=== PATIENT | female | born 1980 | race Caucasian/White ===

== ENCOUNTER → 2017-03-25 12:51 | Outpatient (CLI) | payer OTHER, SELFPAY ==
--- NOTE | 2017-03-25 12:56 | MM_ITS ---
MM Dig mamm BI DX w/CAD, US breast RT complete, US breast LT complete COMPARISON: None INDICATION: Left breast pain ORDERING PHYSICIAN: Yenni Willson PATIENT AGE: 36 years TECHNIQUE: Standard images performed with bilateral spot compression views and bilateral breast ultrasound FINDINGS: There is average fibroglandular tissue. No malignant appearing mass or malignant appearing microcalcification is evident. An asymmetric density is noted in the outer aspect of the right breast. This may be likely related to overlapping fibroglandular tissue anomalies partially compressing out on the focal spot compression view and not identified in the orthogonal plane. There is however small cluster of cysts in this region which could also contribute to this finding. On the left there is some increased density in the retroareolar region and in the medial aspect of the left breast which is also felt to be related to fibroglandular tissue. No malignant appearing mass or malignant appearing microcalcification is evident. Right breast ultrasound: Small cluster of cysts at the 9:00 region measuring 9 x 4 mm. No other significant anomalies. Left breast ultrasound: Unremarkable. IMPRESSION: No convincing evidence of malignancy. Bilateral asymmetric densities and complex cyst in the right breast. Probably benign. Recommend 6 month follow-up BI-RADS Category: 3 Benign Finding Short Term Follow-up RECOMMENDED FOLLOW-UP: 6M - 6 MONTH FOLLOW-UP Bilateral mammogram and right breast ultrasound in 6 months (A letter has been sent to the patient regarding results of the study.)
== END ==
PROVIDERS: PCP Physician Assistant; Visit Provider Physician Assistant
DX: N64.4 Mastodynia (principal)
CPT/HCPCS: 19083; 76641; 77066

== ENCOUNTER → 2017-05-07 09:43 | Outpatient (CLI) | payer OTHER, SELFPAY ==
[2017-05-07 10:25] VITALS: BP 119/76; BP 121/85; PULSE 77; PULSE 84; RESP 18; O2SAT 96; O2SAT 98
== END ==
PROVIDERS: PCP Physician Assistant; Visit Provider Internal Medicine
DX: J45.20 Mild intermittent asthma, uncomplicated (principal); J30.9 Allergic rhinitis, unspecified
CPT/HCPCS: 94060; 94618; 94726; 94729

== ENCOUNTER → 2017-06-01 12:08 | Outpatient (POV) | payer OTHER, SELFPAY | PROVIDERS: Visit Provider Internal Medicine | DX: Z00.00 Encounter for general adult medical examination without abnormal findings (principal) ==

== ENCOUNTER → 2017-09-13 13:39 | Outpatient (CLI) | payer OTHER, SELFPAY ==
--- NOTE | 2017-09-13 13:43 | US_ITS ---
MM Dig mamm BI DX w/CAD Right breast ultrasound complete with axilla Left breast ultrasound complete with axilla INDICATION: 6 month follow-up ORDERING PHYSICIAN: Yenni Willson PATIENT AGE: 36 years COMPARISON: 03/25/2017 TECHNIQUE: Standard images performed of both breasts along with problem solving views of both breasts FINDINGS: There is average fibroglandular tissue. Right breast: Scattered areas of asymmetry are once again noted not significant changed. These areas do appear to compress out as fibroglandular tissue. Benign-appearing nodular opacity is present in the inferior and deep aspect of the right breast not significant changed.. Left breast: Scattered areas of asymmetry not significant changed. The asymmetric density in the medial aspect of the left breast does appear to compress out as fibroglandular tissue. No discrete mass apparent Right breast ultrasound: Small cyst at 8:00 near the nipple at 7 x 3 mm. 6 x 2 mm complex cyst at 9:00. Left breast ultrasound: No cystic or solid lesions evident. IMPRESSION: Overall no significant change. Benign findings with no evidence of malignancy. Scattered areas of asymmetry consistent with fibroglandular tissue with cysts on the right BI-RADS Category: 3 Benign Finding Short Term Follow-up RECOMMENDED FOLLOW-UP: 6M - 6 MONTH FOLLOW-UP Suggest continued 6 month follow-up to confirm one-year stability of the asymmetric densities (A letter has been sent to the patient regarding results of the study.)
== END ==
PROVIDERS: PCP Physician Assistant; Visit Provider Physician Assistant
DX: R92.8 Other abnormal and inconclusive findings on diagnostic imaging of breast (principal)
CPT/HCPCS: 76641; 77066

== ENCOUNTER → 2017-11-23 09:42 | Outpatient (CLI) | payer OTHER, SELFPAY ==
--- NOTE | 2017-11-23 09:45 | CA_ITS ---
PROCEDURE: 2-D M-mode and color Doppler study INDICATIONS FOR THE TEST: Chest pain COPD+ Heart Murmur Tobacco Smoking Palpitations Fatigue Syncope Edema+ Hypertension+Diabetes Mellitus Rheumatic Fever SOB [place] Obesity+Hyperlipidemia+ Family History HD Additional History PATIENT INFORMATION HEIGHT:60 WEIGHT:224 GENDER: Female B/P:129/75 2-D/M-MODE INTERPRETATION: 2-D MEASUREMENTS OBSERVED VALUES IN CMS Right Ventricular Dimension (RVDd) 1.6 Interventricular Septum (Thickness)(IVsd) 1.1 Left Ventricular Internal Dimensions(LVIDd) 5.1 Left Ventricular Posterior Wall (Thickness)(LVPWd) 0.8 Aortic Root 2.6 Aortic Cusp Separation 2.0 Left Atrial Dimensions (LAD) 3.3 2D 1. Left atrium is mildly enlarged, left ventricle is normal size, mild concentric left ventricular hypertrophy, visually estimated ejection fraction 55% with no obvious regional wall motion abnormality. 2. The right atrium ventricular normal size and contractility. 3. The aortic valve is minimally thickened and fibrosed. 4. The mitral and tricuspid valve leaflets are minimally thickened. 5. The pulmonic valve is poorly visualized. 6. No significant pericardial effusion noted. DOPPLER INTERROGATION: Doppler interrogation of the aortic, mitral and tricuspid valvular presence of mild mitral and tricuspid regurgitation, tricuspid regurgitant jet velocity insufficient for calculation of the right ventricle is pressure, diastolic parameters are inconclusive. CONCLUSION: 1. Mildly enlarged left atrium, normal left ventricular size, mild concentric left ventricular hypertrophy, visually estimated ejection fraction 55% with no obvious regional wall motion abnormality, diastolic parameters are inconclusive. 2. Mild mitral and tricuspid regurgitation 3. No significant pericardial effusion noted.
--- NOTE | 2017-11-23 09:45 | XR_ITS ---
XR chest 2V HISTORY: History of smoking, edema ITS.REASON: edema, CHF ORDERING PHYSICIAN: Tommy Dasilva MD PATIENT AGE: 37 years COMPARISON: 02/23/2017 FINDINGS: The cardiomediastinal silhouette and pulmonary vascularity are within normal limits. The lungs are clear without infiltrates, suspicious nodules, or pleural effusions. No acute bony abnormalities. IMPRESSION: Negative chest, no acute finding
[2017-11-23 11:26] LABS: Basophils # 0.1 K/mm3 (0-0.2); Basophils % 0.7 % (0.1-2.0); Eosinophils # 0.3 K/mm3 (0.0-0.4); Eosinophils % 3.2 % (0.1-12.0); Hematocrit 36.5 % (37.0-47.0); Hemoglobin 11.8 g/dL (12.2-16.2); Lymphocytes % 24.6 K/mm3 (10-50); Mean Corpuscular HGB Conc 32.4 g/dL (31.8-35.4); Mean Corpuscular Hemoglobin 28.7 pg (27.0-31.2); Mean Corpuscular Volume 88.5 fl (81-99); Monocytes # 0.5 K/mm3 (0.1-1.0); Monocytes % 5.6 % (1.7-9.3); Neutrophils # 5.2 K/mm3 (1.8-7.8); Neutrophils % 65.8 % (37.0-80.0); Platelet Count 277 K/mm3 (142-424); Red Blood Count 4.12 M/mm3 (4.20-5.40)
[2017-11-23 11:56] LABS: Alanine Aminotransferase 30 U/L (12-78); Albumin Level 3.4 gm/dL (3.4-5.0); Alkaline Phosphatase 79 U/L (46-116); Anion Gap 9.6 mEq/L (5-15); Aspartate Amino Transferase 10 U/L (15-37); Bilirubin,Direct 0.1 mg/dL (0.0-0.2); Bilirubin,Indirect 0.1 mg/dL (0.0-0.9); Bilirubin,Total 0.2 mg/dL (0.2-1.0); Blood Urea Nitrogen 13 mg/dL (7-18); Calcium 8.5 mg/dL (8.5-10.1); Carbon Dioxide 34 mmol/L (21.0-32.0); Chloride 104 mmol/L (98-107); Creatinine,Serum 1.02 mg/dL (0.55-1.02); Estimated Glomerular Filt Rate 60 ml/min (>60); Free T4 (Free Thyroxine) 0.88 ng/dl (0.76-1.46); Free Thyroxine Index 3.2 ug/dL (5.93-13.13); GFR (African American) 73 ML/MIN (>60); Glucose 98 mg/dL (74-106); Potassium 3.6 mmoL/L (3.5-5.1); Sodium 144 mmol/L (136-145); Thyroid Stimulating Hormone 7.81 uIU/ml (0.358-3.740); Total Protein,Serum 6.9 gm/dL (6.4-8.2); Triiodothryronine (T3) Uptake 35 % (31-39)
[2017-11-24 12:46] LABS: Triiodothyronine (T3) Free 3.7 pg/mL (2.0-4.4)
== END ==
PROVIDERS: Urology; PCP Physician Assistant; Visit Provider Internal Medicine
DX: I10 Essential (primary) hypertension (principal); R60.9 Edema, unspecified
CPT/HCPCS: 36415; 71046; 80048; 80076; 83880; 84436; 84439; 84443; 84479; 84481; 85025; 93306

== ENCOUNTER → 2018-06-29 14:30 | Outpatient (CLI) | payer OTHER, SELFPAY ==
--- NOTE | 2018-06-29 14:42 | XR_ITS ---
XR humerus RT CLINICAL INDICATION: ITS.REASON: RT ELBOW PAIN,RT ARM PAIN ORDERING PHYSICIAN: Yenni Willson PATIENT AGE: 37 years Comparison: None FINDINGS: No bony or joint abnormality IMPRESSION: Negative right humerus
--- NOTE | 2018-06-29 14:43 | XR_ITS ---
XR elbow RT min 3V HISTORY: ITS.REASON: RT ELBOW PAIN,RT ARM PAIN ORDERING PHYSICIAN: Yenni Willson PATIENT AGE: 37 years COMPARISON: None FINDINGS: The AP view there is a faint curvilinear lucency overlying the radial head. This could be due to an area of prominent trabeculation or overlying soft tissue mock line. One cannot exclude the possibility of a radial head fracture. Has there been recent injury? No displaced fat pad evident. No other significant anomalies. IMPRESSION: Possible radial head fracture versus overlying artifact. Suggest follow-up exam in 7-[address]
== END ==
PROVIDERS: PCP Physician Assistant; Visit Provider Physician Assistant
DX: M25.521 Pain in right elbow (principal); M79.601 Pain in right arm
CPT/HCPCS: 73060; 73080

== ENCOUNTER → 2018-08-12 09:22 | Outpatient (CLI) | payer OTHER, SELFPAY | PROVIDERS: PCP Physician Assistant; Visit Provider Nurse Practitioner Family | DX: I11.9 Hypertensive heart disease without heart failure (principal); R60.9 Edema, unspecified; R63.5 Abnormal weight gain | CPT/HCPCS: 93017 ==

== ENCOUNTER → 2020-07-18 09:19 | Outpatient (CLI) | payer MEDICAID, SELFPAY ==
--- NOTE | 2020-07-18 09:23 | MM_ITS ---
PROCEDURE INFORMATION: Exam: MG Screening 3D Mammography Exam date and time: 07/18/2020 9:23 AM Age: 39 years old Clinical indication: Encounter for screening mammogram for malignant neoplasm of breast TECHNIQUE: Imaging protocol: Screening tomosynthesis and 2D mammography including computer-aided detection (CAD) when performed. COMPARISON: 1. MG DXBI MM Dig mamm BI DX w/CAD 09/13/2017 1:53 PM 2. MG DXBI MM Dig mamm BI DX w/CAD 03/25/2017 1:15 PM FINDINGS: MAMMOGRAPHY: Breast composition: The breast tissue is composed of scattered areas of fibroglandular density. Mass: None. Architectural distortion: None. Calcifications: No suspicious calcifications. Asymmetric density: None. Skin thickening: None. Axillary adenopathy: None. IMPRESSION: No mammographic evidence of malignancy. Annual screening is recommended unless otherwise clinically indicated. ASSESSMENT: BI-RADS Category 1: Negative
== END ==
PROVIDERS: PCP Nurse Practitioner Family; Visit Provider Nurse Practitioner Family
DX: Z12.31 Encounter for screening mammogram for malignant neoplasm of breast (principal)
CPT/HCPCS: 77063; 77067

== ENCOUNTER → 2021-07-23 10:14 | Outpatient (CLI) | payer MEDICAID, SELFPAY ==
--- NOTE | 2021-07-23 10:17 | MM_ITS ---
PROCEDURE INFORMATION: Exam: MG Bilateral Screening 3D Mammography Exam date and time: 07/23/2021 10:18 AM Age: 40 years old Clinical indication: Screening examination TECHNIQUE: Imaging protocol: Bilateral Screening tomosynthesis and 2D mammography including computer-aided detection (CAD) when performed. COMPARISON: 1. MG MM DIG SCREENING MAMM BI W/CAD 07/18/2020 10:06 AM 2. MG DXBI MM Dig mamm BI DX w/CAD 09/13/2017 1:53 PM 3. MG DXBI MM Dig mamm BI DX w/CAD 03/25/2017 1:15 PM FINDINGS: MAMMOGRAPHY: Breast composition: There are scattered areas of fibroglandular density. Mass: No suspicious masses. Architectural distortion: No suspicious distortion. Calcifications: No suspicious calcifications. Asymmetric density: None. Skin thickening: None. Axillary adenopathy: None. IMPRESSION: No mammographic evidence of malignancy. Annual screening is recommended unless otherwise clinically indicated. ASSESSMENT: BI-RADS Category 1: Negative
== END ==
PROVIDERS: PCP Nurse Practitioner Family; Visit Provider Nurse Practitioner Family
DX: Z12.31 Encounter for screening mammogram for malignant neoplasm of breast (principal)
CPT/HCPCS: 77063; 77067

== ENCOUNTER 2024-04-30 20:29 | Emergency (ER) | payer MEDICAID, SELFPAY ==
[2024-04-30 20:32] VITALS: BP 119/56; PULSE 84; RESP 18; TEMP 36.5; O2SAT 95; BMI 36.9
--- NOTE | 2024-04-30 20:48 | PC.NURSE ---
Spoke with for a transfer. ED to ED transfer, awaiting a call back at this time.
--- NOTE | 2024-04-30 20:51 | HMH.EDGENADL ---
Discharge Plan Disposition Patient Disposition: Xfer Short-Term Hosp Chief Complaint: Wound/Laceration Prescriptions Prescriptions: No Action omeprazole 20 mg capsule,delayed release(DR/EC) 20 mg PO DAILY fluticasone propionate 50 mcg/actuation spray,suspension 1 spray INTRANASAL DAILY cetirizine [Zyrtec] 10 mg tablet 10 mg PO DAILY PRN Ventolin HFA 90 mcg/actuation HFA aerosol inhaler 2 puff INHALATION Q4-6H PRN montelukast [Singulair] 10 mg tablet 10 mg PO QPM meloxicam 7.5 mg tablet 7.5 mg PO DAILY hydroxyzine pamoate [Vistaril] 50 mg capsule 50 mg PO BID levothyroxine [Synthroid] 125 mcg tablet 125 mcg PO DAILY Dulera 200-5 mcg/actuation HFA aerosol inhaler 2 puff INHALATION BID bisoprolol fumarate 5 mg tablet 5 mg PO QDAY Qty: 30 5RF paroxetine HCl 30 mg tablet 30 mg PO DAILY rosuvastatin [Crestor] 20 mg tablet 20 mg PO DAILY Qty: 90 3RF lisinopril 20 mg tablet 20 mg PO DAILY Qty: 30 5RF spironolactone 25 mg tablet 25 mg PO DAILY Qty: 90 3RF torsemide 100 mg tablet 50 mg PO DAILY Qty: 90 3RF Referrals Follow up/Referrals: Linda Palma [Primary Care Provider] - See instructions Clinical Impressions Clinical Impression: Injury of palmar artery of right hand Instructions Patient Instructions: DI for Laceration Repair Print Language Print Language: Yakut Discharge ED Provider: Anatoly Holm General Adult HPI General Chief complaint: Wound/Laceration Stated complaint: AO 04/30/241999 laceration right hand Time Seen by Provider: 04/30/24 20:39 History of Present Illness HPI narrative: Patient is a 43-year-old female with no pertinent past medical history right-handed who presents to the emergency department for evaluation of traumatic laceration of her right palm. Patient was getting ready to cut up a cut of meat and cut her right palm with a large knife that was clean. Last Tdap not up-to-date. No other acute complaints at this time. Related Data Home Medications ?Medication ?Instructions ?Recorded ?Confirmed albuterol sulfate 90 mcg/actuation 2 puff inhalation Q4-6H PRN 11/11/17 05/15/19 aerosol inhaler (Ventolin HFA) cetirizine 10 mg tablet (Zyrtec) 10 mg PO DAILY PRN 11/11/17 05/15/19 fluticasone propionate 50 1 spray intranasal DAILY 11/11/17 05/15/19 mcg/actuation nasal spray,suspension meloxicam 7.5 mg tablet 7.5 mg PO DAILY 11/11/17 05/15/19 montelukast 10 mg tablet 10 mg PO QPM 11/11/17 05/15/19 (Singulair) omeprazole 20 mg capsule,delayed 20 mg PO DAILY 11/11/17 05/15/19 release levothyroxine 125 mcg tablet 125 mcg PO DAILY 08/10/18 05/15/19 (Synthroid) mometasone-formoterol HFA 200 2 puff inhalation BID 08/10/18 05/15/19 mcg-5 mcg/actuation aerosol inhaler (Dulera) hydroxyzine pamoate 50 mg capsule 50 mg PO BID 05/15/19 05/15/19 (Vistaril) paroxetine HCl 30 mg tablet 30 mg PO DAILY 05/15/19 05/15/19 Previous Rx's ?Medication ?Instructions ?Recorded bisoprolol fumarate 5 mg tablet 5 mg PO QDAY #30 tabs 05/01/19 rosuvastatin 20 mg tablet (Crestor) 20 mg PO DAILY #90 tabs 05/15/19 lisinopril 20 mg tablet 20 mg PO DAILY #30 tabs 11/22/19 spironolactone 25 mg tablet 25 mg PO DAILY #90 tabs 11/22/19 torsemide 100 mg tablet 50 mg (1/2 x 100 mg) PO DAILY #90 11/22/19 tabs Allergies Allergy/AdvReac Type Severity Reaction Status Date / Time penicillin G Allergy Mild Verified 05/15/19 13:55 sodium Allergy Mild Verified 05/15/19 13:55 [facility] Disclaimer: The information contained in this section may have been updated after the patient was seen, as this information can be updated by other users. Medical History (Updated 04/30/24 @ 21:32 by Anatoly Holm MD) Hypothyroidism HHD (hypertensive heart disease) Social History Smoking Status: Unknown if ever smoked alcohol intake: never substance use type: denies use current occupational status: other Travel in the last 8 weeks: None Have you lived/traveled outside [place] in past 30 days?: No Contact w/someone who lives/traveled outside US past 30 days?: No Exposure to someone with infectious disease in past 14 days?: No Do you have a fever (greater than 100.4 F or 38 C)?: No Have you tested positive for COVID-19: No Exposed to someone with COVID-19 in past 14 days?: No Do you have a sore throat?: No Do you have a cough?: No Do you have any weakness?: No Do you have any diarrhea?: No Are you experiencing any unusual bleeding?: No Do you have any muscle aches/pain?: No Do you have any abdominal pain?: No Are you experiencing loss of taste or smell?: No Other Medical History Have you received the Flu Vaccine for this season: No Have you received the Pneumonia Vaccine: No ROS Obtained: Yes Systems reviewed as appropriate & no additional complaints except as documented Physical Exam General General appearance: alert and in no apparent distress Head Head exam: atraumatic and normocephalic Eye Eye exam: Present PERRL ENT ENT exam: Present mucous membranes moist Neck Neck exam: Present normal inspection Chest Chest inspection: Present normal inspection and symmetric chest wall rise Respiratory Respiratory exam: Absent respiratory distress Cardiovascular Cardiovascular exam: Present regular rate and normal rhythm Abdominal Exam Abdominal exam: Present soft Extremities Exam Extremities exam: Present other (Arterial hemorrhage on the right palm, capillary refill preserved and sensation preserved distally.); Absent normal inspection Neurological Exam Neurological exam: Present alert Psychiatric Psychiatric exam: Present normal affect Skin Skin exam: Present warm and dry Medical Decision Making Medical Records Screening: Per USPSTF and CDC recommendations, given the prevalence of disease in our region, it is our hospital?s policy to screen for HIV and viral Hepatitis for all patients aged 18 and over and those with ongoing risk factors. Manuel Inquiry Pt receiving controlled substance: No Vital Signs: 04/30/24 20:32 Temperature 97.7 F Temperature Source Oral Pulse Rate [Radial] 84 Respiratory Rate 18 Blood Pressure [L Arm] 119/56 L Blood Pressure Mean [L Arm] 77 Blood Pressure Source [L Arm] Automatic Cuff 02 Sat by Pulse Oximetry 95 Oxygen Delivery Method Room Air Orders (Tests/Meds): ED MEDICATIONS Discontinued Medications Generic Name Dose Route Start Last Admin Trade Name Freq PRN Reason Stop Dose Admin Tetanus/Reduced Diphtheria/Acell Pertussis 0.5 ml 04/30/24 20:48 04/30/24 21:10 Tet/Diphth/Pert-Adult 0.5ml Syringe IM 04/30/24 20:49 0.5 ml .ONCE ONE Administration Medical Decision Narrative: In summary patient is a 43-year-old female past medical history described above who presents emergency department for evaluation of a laceration of her right hand. Patient has active arterial bleeding on the right hand for which inverted pressure dressing was immediately placed, blood pressure cuff inflated at the wrist, hemostasis achieved. Tdap will be updated. Blood pressure cuff is poorly tolerated so pressure dressing was taken down and manual occlusion of the ulnar artery significantly limited the bleed. Inverted pressure dressing replaced. Hemostasis achieved. Case was discussed with [facility] Dr. Ortiz who graciously excepted patient for continued evaluation at this time. Critical Care Critical Care Time Critical Care Time: Yes Attestation: On 04/30/24, the high probability of a clinically significant, sudden or life threatening deterioration of the following system(s) required my full and direct attention, intervention and personal management. The time I documented below is in addition to time spent performing reported procedures but includes the following listed in this critical care notation. Total Time Total Critical Care Time: 35
--- NOTE | 2024-04-30 21:09 | PC.NURSE ---
Spoke with transfer center to check in and see when we may be recieving a call back. They said its only been 20 minutes and we are finishing up cases ahead of you. we will give you a call back when we get done. Dr. Holm is aware of this at this time.
[2024-04-30] MEDS: TET/DIPHTH/PERT-ADULT 0.5ML SYRINGE 0.5 ML IM (21:10)
--- NOTE | 2024-04-30 21:28 | PC.NURSE ---
speaking with at this time.
--- NOTE | 2024-04-30 21:29 | PC.NURSE ---
Patient unable to tolerate the tourniquet. Tourniquet taken down and manual pressure applied to the ulnar artery proximal to the laceration. Bleeding controlled at this time.
--- NOTE | 2024-04-30 21:34 | PC.NURSE ---
spoke with ambulance service, they should be here soon.
[2024-04-30 21:53] VITALS: BP 133/76; PULSE 89; RESP 18; TEMP 36.8
--- NOTE | 2024-04-30 21:55 | PC.NURSE ---
EMS present and at bedside. Manual pressure currently being held. Bleeding controlled. Report called to [facility] no questions or concerns at this time.
== END 2024-04-30 21:57 | disposition other institution (70) ==
PROVIDERS: Emergency Provider Emergency Medicine; PCP Nurse Practitioner Family
DX: S61.411A Laceration without foreign body of right hand, initial encounter (principal); S65.911A Laceration of unspecified blood vessel at wrist and hand level of right arm, initial encounter; Z23 Encounter for immunization; W26.0XXA Contact with knife, initial encounter; Y93.89 Activity, other specified; Y92.000 Kitchen of unspecified non-institutional (private) residence as the place of occurrence of the external cause
CPT/HCPCS: 90471; 90715; 99291